=== PATIENT | male | born 2000 | race Caucasian/White ===

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

== ENCOUNTER 2020-02-24 03:07 | Emergency (ER) | payer BC ==
[2020-02-24 03:45] VITALS: BP 120/78; PULSE 81; TEMP 98.6; BMI 22.9
[2020-02-24] MEDS ORDERED: SODIUM CHLORIDE 1,000 ML IV STA (04:15)
[2020-02-24 04:23] LABS: BASO % 0.4 % (0-2.0); EOS % 1.9 % (0-4.5); HEMATOCRIT 43.3 % (35.4-49); HEMOGLOBIN 14.7 GM/dL (11.7-16.9); MCH 30.4 pg (25.7-33.7); MCHC 33.9 g/dl (32.0-35.9); MEAN CELL VOLUME 89.7 fl (80-96); MEAN PLT VOLUME 7.5 fl (7.5-11.1); MONO % 9.3 % (3.8-10.2); NEUT % 73.4 % (42.8-82.8); PLATELET COUNT 294 K/MM3 (134-434); RBC 4.83 M/mm3 (4.00-5.60); RDW 12.8 % (11.9-15.9); WHITE BLOOD COUNT 11.1 K/mm3 (4.0-10.0)
[2020-02-24 04:36] LABS: CHLORIDE 105 mmol/L (98-107); POTASSIUM 4.6 mmol/L (3.5-5.1); SODIUM 138 mmol/L (136-145)
[2020-02-24] MEDS ORDERED: ACETAMINOPHEN 325 MG TABLET (FP) PO ONE (04:36)
[2020-02-24 04:38] LABS: CALCIUM 9.3 mg/dL (8.5-10.1)
[2020-02-24 04:39] LABS: ALBUMIN 4.1 g/dl (3.4-5.0); ANION GAP 2 MMOL/L (8-16); BLOOD UREA NITROGEN 18.8 mg/dL (7-18); CO2 31 mmol/L (21-32); GLUCOSE,RANDOM 109 mg/dL (74-106); MAGNESIUM 2.2 mg/dL (1.8-2.4)
[2020-02-24] MEDS ORDERED: ACETAMINOPHEN 325 MG TABLET (FP) ONE (04:40)
[2020-02-24 04:42] LABS: CREATININE 0.9 mg/dL (0.55-1.3); SGOT/AST 7 U/L (15-37); SGPT/ALT 18 U/L (13-61)
[2020-02-24 04:43] LABS: TOT PROT 7.6 g/dl (6.4-8.2)
[2020-02-24 04:44] LABS: BILIRUBIN,TOTAL 0.2 mg/dL (0.2-1)
[2020-02-24 04:45] LABS: ALK PHOS 71 U/L (45-117)
== END 2020-02-24 05:26 | disposition home or self-care (01) ==
LOC: JER 03:07
PROC: 3E0337Z Introduction of Electrolytic and Water Balance Substance into Peripheral Vein, Percutaneous Approach (ICD-10-PCS; principal; 2020-02-24)
DX: R55 Syncope and collapse (principal); R06.09 Other forms of dyspnea
CPT/HCPCS: 36415; 71045-TC-FY; 80053; 82550; 83735; 84443; 84484; 85025; 85379; 93005; 93010; 99285-25

== ENCOUNTER 2021-08-07 21:35 | Emergency (ER) | payer BC, OTHER ==
[2021-08-07 21:42] VITALS: BP 137/66; PULSE 106; TEMP 99.5; BMI 25.7
== END 2021-08-07 23:06 | disposition home or self-care (01) ==
LOC: JER 21:35
DX: K52.9 Noninfective gastroenteritis and colitis, unspecified (principal)
CPT/HCPCS: 99283-25

== ENCOUNTER 2024-03-30 19:00 | Emergency (ER) | payer OTHER ==
[2024-03-30 19:05] VITALS: BP 117/71; PULSE 65; RESP 18; TEMP 97.6; BMI 25.8
[2024-03-30] MEDS ORDERED: LIDOCAINE 4% PATCH TP ONE (20:10)
[2024-03-30] MEDS ORDERED: IBUPROFEN 600 MG TABLET (FP) PO ONE (20:10)
[2024-03-30] MEDS: LIDOCAINE 4% PATCH TP ONE (20:15)
[2024-03-30] MEDS: IBUPROFEN 600 MG TABLET (FP) PO ONE (20:15)
== END 2024-03-30 20:20 | disposition home or self-care (01) ==
LOC: JERFT 19:00
DX: M54.50 Low back pain, unspecified (principal); V43.32XA Unspecified car occupant injured in collision with other type car in nontraffic accident, initial encounter
CPT/HCPCS: 99283-25